=== PATIENT | male | born 1960 | race Caucasian/White ===

== ENCOUNTER 2022-06-06 09:21 | Inpatient (IN) | payer BC ==
[~2022-06-06] VITALS: Ht 175.3 cm; Wt 83.9 kg
[~2022-06-06 09:21] MED LIST: HYDR50TA4 PO; LISI40TA13 PO; TAMS-3 PO
--- NOTE | 2022-06-06 09:21 | NUR ---
Pt. admitted to , under care of Dr. Loomis List completed
--- NOTE | 2022-06-06 11:25 | NUR ---
Patient is resting comfortably in bed with eyes closed
--- NOTE | 2022-06-06 11:26 | NUR ---
1700 URINE OUTPUT NOTED FROM BAILEY LEMONS,WILL CONTINUE TO MONITOR FOR ANY S/S OF DISCONFORT VSS Addendum: 06/06/22 at 1127 by TATIANA 1700 URINE OUTPUT NOTED.MD CUEVAS
[2022-06-06 12:10] LABS: HEMATOCRIT 31.8 % (36.7-47.1); MEAN CORPUSCULAR HEMOGLOBIN 31.6 uug (23.8-33.4); MEAN CORPUSCULAR VOLUME 92.2 fL (73.0-96.2); PLATELET COUNT (AUTO) 201 K/uL (152-348)
[2022-06-06 12:10] LABS: *BILIRUBIN,URIN NEGATIVE (NEGATIVE); *BLOOD, URINE 3+ (NEGATIVE); *CLARITY,URINE CLEAR (CLEAR); *COLOR,URINE YELLOW (YELLOW); *KETONES,URINE NEGATIVE (NEGATIVE); *UROBILINOGEN,URINE 0.2 E.U./dl (NORMAL); LEUKOCYTE ESTERASE ,URINE NEGATIVE (NEGATIVE); NITRITE, URINE NEGATIVE (NEGATIVE); UGLUCOSE NEGATIVE (NEGATIVE)
[2022-06-06 12:15] LABS: *URINE UREA NITROGEN, RNDM 125 mg/dL (350-1000)
[2022-06-06 12:25] LABS: POTASSIUM 3.9 mmol/L (3.5-5.1)
[2022-06-06] MEDS ORDERED: MAGNESIUM SULFATE/D5W 100 ML IV SCH (12:30)
[2022-06-06] MEDS ORDERED: MAGNESIUM SULFATE/D5W 100 ML ONE (13:04)
[2022-06-06] MEDS: IV NS 1000 ML 1,000 ML IV PRN ×4 (13:26→23:53)
--- NOTE | 2022-06-06 13:46 | NUR ---
pT ALERT AND ORIENTED AD BEDSIDE.IV 0.9 NORMAL SALINE AT 120 MLS ORDERED,PT RECEIVED MAGNESIUM NO S/S OF REACTION NOTED.
[2022-06-06 13:52] LABS: BACTERIA,URINE FEW /HPF (NONE SEEN); SQUAMOUS EPITHELIAL CELL,UR FEW /HPF (NONE SEEN); WBC,URINE 0-3 /HPF (0-3)
[2022-06-06] MEDS ORDERED: HYDROCODONE/APAP 5-325MG TABLET PO PRN (14:00)
[2022-06-06] MEDS ORDERED: ONDANSETRON 4 MG/2 ML VIAL IV PRN (14:00)
--- NOTE | 2022-06-06 14:30 | NUR ---
received per paola awake alert and oriented x 4, with c/o of inaabilisty mto urinate, amaya cath inserted in ER- draining yellow urine, tele applied- SR no shortness of breath noted, on room air, oriented to bed controls, call button for nurse- verbalized understanding, initial assessment done by charge nurse, safety measures initiated
[2022-06-06 15:50] VITALS: BP 137/64
--- NOTE | 2022-06-06 17:36 | NUR ---
temyeyo recheck- 99.2, has ice pack on the back of neck, denies of pain a this time
--- NOTE | 2022-06-06 18:39 | NUR ---
resting in bed, no distress noted, mrsa swab sent to lab, all needs attended and met, call light within reach
--- NOTE | 2022-06-06 19:46 | NUR ---
Updated Dr Lai regarding patient current condition and fever during day shift. With order to start 1gm Vanco IV and Blood culture. Order noted and will carry out.
[2022-06-06] MEDS: ACETAMINOPHEN 325 MG TABLET PO PRN (20:12)
[2022-06-06 20:24] VITALS: BP 129/62
[2022-06-06] MEDS ORDERED: VANCOMYCIN IV 1,000 MG in IV DEXTROSE 5% 250 ML IV SCH (21:00)
[2022-06-06] MEDS ORDERED: VANCOMYCIN IV 200 ML ONE ×2 (21:13→23:25)
[2022-06-06] MEDS: VANCOMYCIN IV 2,000 MG in IV DEXTROSE 5% 500 ML IV ONE (21:52)
[2022-06-07 00:21] VITALS: BP 126/72
[2022-06-07 04:43] VITALS: BP 156/78
[2022-06-07] MEDS: ACETAMINOPHEN 325 MG TABLET PO PRN ×2 (05:15→15:36)
--- NOTE | 2022-06-07 05:42 | NUR ---
Tylenol 650mg PO and cooling measure provided for fever and effective. Current Temp 99.3 orally. Patient remains AAOx4. In no acute distress. Montgomery catheter intact and draining via gravity. No adverse effect noted from IV antibiotic. IV fluids continue to infuse to right wrist #22G. NSR on tele with HR of 71/min. Needs attended to and met. Safety measure maintained and call light within reached.
[2022-06-07 06:34] LABS: HEMATOCRIT 28.2 % (36.7-47.1); MEAN CORPUSCULAR HEMOGLOBIN 32.4 uug (23.8-33.4); MEAN CORPUSCULAR VOLUME 90.8 fL (73.0-96.2); PLATELET COUNT (AUTO) 186 K/uL (152-348)
[2022-06-07 06:51] LABS: CREATININE 0.9 mg/dL (0.6-1.3); PHOSPHOROUS 2.1 mg/dL (2.5-4.9)
[2022-06-07 08:13] LABS: MAGNESIUM 0.9 mg/dL (1.8-2.4)
[2022-06-07] MEDS: IV NS 1000 ML 1,000 ML IV PRN ×2 (09:32→21:10)
[2022-06-07] MEDS: POTASSIUM CHLORIDE 10 MEQ TAB.PRT.SR PO SCH ×2 (09:32→13:28)
[2022-06-07] MEDS: VANCOMYCIN IV 1,250 MG in IV DEXTROSE 5% 250 ML IV SCH ×2 (10:28→23:54)
[2022-06-07] MEDS ORDERED: ROSU40TA PO (10:38)
[2022-06-07] MEDS ORDERED: NEBI10TA2 PO (10:38)
[2022-06-07] MEDS ORDERED: MAGN250T37 PO (10:38)
[2022-06-07] MEDS ORDERED: TAMS-3 PO (10:45)
[2022-06-07] MEDS: MAGNESIUM SULFATE/D5W 100 ML IV SCH ×4 (11:28→14:31)
[2022-06-07 11:35] VITALS: BP 170/76
--- NOTE | 2022-06-07 12:00 | NUR ---
Patient is AAOx4. at bedside. In no acute distress, no pain. Montgomery catheter intact and draining via gravity. No adverse effect noted from IV antibiotic. IV fluids continue to infuse to right wrist #22G. NSR on tele with HR of 73/min. Needs attended to and met. Safety measure maintained and call light within reached.
[2022-06-07 13:30] LABS: IRON, SERUM 11 ug/dL (50-175)
[2022-06-07] MEDS: METOPROLOL TARTRATE 50 MG TABLET PO SCH ×2 (13:36→20:36)
[2022-06-07] MEDS ORDERED: NEUTRA PHOS PACKET PO ONE (14:00)
--- NOTE | 2022-06-07 14:15 | NUR ---
Ulises was DC'd per Dr Swann to check if patient can void on his own.
[2022-06-07 16:00] VITALS: BP 143/71
--- NOTE | 2022-06-07 18:31 | NUR ---
Patient said he felt an urge to urinate but could not. Dr Swann made aware. Did bladder scanner, it showed 770cc retention of urine. Dr Obrien is informed.
--- NOTE | 2022-06-07 19:30 | NUR ---
Received patient lying in bed. AAOx4. In no acute distress. Denies any pain or SOB. NSR on tele with HR of 81/min. IV site on right wrist intact and patent. IVF infusing. Montgomery catheter intact and draining via gravity. Needs assessed and attended to. Safety measure initiated and call light within reached.
[2022-06-07 20:00] VITALS: BP 137/68
[2022-06-07] MEDS: ATORVASTATIN 40 MG TABLET PO SCH (20:35)
[2022-06-08] VITALS: BP 149/74
[2022-06-08] MEDS: ACETAMINOPHEN 325 MG TABLET PO PRN ×3 (01:38→21:47)
--- NOTE | 2022-06-08 05:57 | NUR ---
No adverse reaction noted from IV antibiotic. Afebrile at this time. NSR on tele with HR of 75/min. V fluids infusing. Montgomery catheter intact and draining via gravity. Dressing on back intact. Dressing change to upper back/cervical area. Needs attended to and met. Safety measure maintained and call light within reached.
[2022-06-08 07:09] LABS: HEMATOCRIT 29.5 % (36.7-47.1); MEAN CORPUSCULAR HEMOGLOBIN 32.6 uug (23.8-33.4); MEAN CORPUSCULAR VOLUME 90.4 fL (73.0-96.2); PLATELET COUNT (AUTO) 252 K/uL (152-348)
[2022-06-08 07:38] LABS: POTASSIUM 3.5 mmol/L (3.5-5.1)
[2022-06-08 07:40] LABS: BILIRUBIN,DIRECT 0.2 mg/dL (0.0-0.2); TOTAL PROTEIN, SERUM 5.7 g/dL (6.4-8.2)
--- NOTE | 2022-06-08 08:00 | NUR ---
AWAKE ALERT AND ORIENTED X3 NO SS OF PAIN OR SOB SR ON MONITOR, AVALOS DRAINING CLEAR JOSY URINE. FOR F/U WITH UROLOGIST DUE TO RETANTIPON
[2022-06-08 08:48] LABS: MAGNESIUM 1.1 mg/dL (1.8-2.4)
[2022-06-08] MEDS: MAGNESIUM OXIDE 250 MG TABLET PO SCH (08:53)
[2022-06-08] MEDS: IV NS 1000 ML 1,000 ML IV PRN (08:54)
[2022-06-08] MEDS: METOPROLOL TARTRATE 50 MG TABLET PO SCH ×2 (08:54→20:53)
[2022-06-08] MEDS: MAGNESIUM SULFATE/D5W 100 ML IV SCH ×3 (09:51→11:36)
[2022-06-08] MEDS ORDERED: MAGNESIUM SULFATE/D5W 100 ML IV SCH (10:00)
--- NOTE | 2022-06-08 11:00 | NUR ---
SEEN BY DR Tara FRANCIS FOR FOLLOW-UP AWAITING UROLOGIST CONSULT
[2022-06-08 12:00] VITALS: BP 149/72
--- NOTE | 2022-06-08 12:50 | NUR ---
SEEN BY UROLOGIST DR KABA FOR CONSULT RECOMMEND TO LEAVE AVALOS CATH WHEN DISCHARGE AND F/U WITH OWN UROLOGIST.
[2022-06-08] MEDS: VANCOMYCIN IV 1,250 MG in IV DEXTROSE 5% 250 ML IV SCH (13:25)
[2022-06-08] MEDS: GLUCERNA SHAKE 237 ML CAN PO SCH (15:35)
[2022-06-08 16:00] VITALS: BP 150/70
--- NOTE | 2022-06-08 16:30 | NUR ---
TEMP 100.3 ORALLY TYLENOL GIVEN PRN. OBSERVED
[2022-06-08 20:14] VITALS: BP 143/72
[2022-06-08] MEDS: ATORVASTATIN 40 MG TABLET PO SCH ×4 (20:53→21:37)
[2022-06-08] MEDS: TAMSULOSIN HCL 0.4 MG CAP.SR.24H PO SCH ×2 (20:53→21:00)
[2022-06-08] MEDS ORDERED: IBUPROFEN 400 MG TABLET PO PRN ×2 (22:00)
[2022-06-09 00:10] VITALS: BP 146/85
[2022-06-09] MEDS: VANCOMYCIN IV 1,250 MG in IV DEXTROSE 5% 250 ML IV SCH ×3 (02:08→20:00)
[2022-06-09 04:24] VITALS: BP 149/76
[2022-06-09 06:58] LABS: HEMATOCRIT 29.9 % (36.7-47.1); MEAN CORPUSCULAR HEMOGLOBIN 32.7 uug (23.8-33.4); MEAN CORPUSCULAR VOLUME 89.9 fL (73.0-96.2); PLATELET COUNT (AUTO) 292 K/uL (152-348)
[2022-06-09 07:29] LABS: PHOSPHOROUS 3.1 mg/dL (2.5-4.9); POTASSIUM 3.8 mmol/L (3.5-5.1)
[2022-06-09 08:18] LABS: MAGNESIUM 1.2 mg/dL (1.8-2.4)
[2022-06-09] MEDS: GLUCERNA SHAKE 237 ML CAN PO SCH ×2 (09:01→16:23)
[2022-06-09] MEDS: METOPROLOL TARTRATE 50 MG TABLET PO SCH ×2 (09:02→20:23)
[2022-06-09] MEDS: MAGNESIUM OXIDE 250 MG TABLET PO SCH (09:02)
[2022-06-09] MEDS: MAGNESIUM SULFATE/D5W 100 ML IV SCH ×4 (09:43→13:35)
--- NOTE | 2022-06-09 10:00 | NUR ---
ANXIOUS TO BE DISCHARGED TODAY. DSGS TO NECK AND UPPER BACK CLEAN, DRY AND INTACT. SCANT AMOUNT OF OLD DRAINAGE NOTED ON NECK DSG. OT HERE TO ISMAEL. PATIENT.
[2022-06-09 12:00] VITALS: BP 156/71
[2022-06-09 16:00] VITALS: BP 153/77
[2022-06-09] MEDS: PIPERACILLIN SODIUM/TAZOBACTAM 4.5 G in IV DEXTROSE 5% 50 ML IV SCH (16:23)
[2022-06-09] MEDS: ATORVASTATIN 40 MG TABLET PO SCH (20:21)
[2022-06-09] MEDS: ACETAMINOPHEN 325 MG TABLET PO PRN (20:21)
[2022-06-09] MEDS: TAMSULOSIN HCL 0.4 MG CAP.SR.24H PO SCH (20:25)
[2022-06-09 20:50] VITALS: BP 160/87
[2022-06-10] MEDS: PIPERACILLIN SODIUM/TAZOBACTAM 4.5 G in IV DEXTROSE 5% 50 ML IV SCH ×3 (00:14→16:30)
[2022-06-10 04:30] VITALS: BP 147/81
[2022-06-10] MEDS: VANCOMYCIN IV 1,250 MG in IV DEXTROSE 5% 250 ML IV SCH ×3 (05:05→22:12)
[2022-06-10] MEDS: ACETAMINOPHEN 325 MG TABLET PO PRN ×4 (05:26→23:07)
[2022-06-10 07:27] LABS: POTASSIUM 3.3 mmol/L (3.5-5.1)
[2022-06-10 07:49] LABS: MAGNESIUM 1.2 mg/dL (1.8-2.4)
--- NOTE | 2022-06-10 08:00 | NUR ---
Pt alert and oriented x 4. Pt is in no acute distress. Denies any c/o pain. IV on right hand intact repositioned 2nd to leakage noted. Call light is within reach. Reinforce to patient No TWISTING due to his sx.
[2022-06-10] MEDS: METOPROLOL TARTRATE 50 MG TABLET PO SCH ×2 (09:22→21:15)
[2022-06-10] MEDS: MAGNESIUM OXIDE 250 MG TABLET PO SCH (09:22)
[2022-06-10] MEDS: GLUCERNA SHAKE 237 ML CAN PO SCH ×2 (09:24→16:30)
[2022-06-10] MEDS ORDERED: POTASSIUM CHLORIDE 20 MEQ TAB.PRT.SR PO ONE (09:45)
[2022-06-10] MEDS: MAGNESIUM SULFATE/D5W 100 ML IV SCH ×6 (10:34→16:29)
[2022-06-10 12:00] VITALS: BP 140/75
--- NOTE | 2022-06-10 12:33 | NUR ---
WOUND CARE CONSULT: RECEIVED CONSULT FOR SURGICAL DRESSING DRAINAGE. PT HAS TWO DRESSINGS, SURGICAL AND THORACIC. BOTH DRESSINGS ARE DRY AND INTACT. PT WILL FOLLOW UP WITH HIS SURGEON. WILL SEE PRN.
[2022-06-10 16:00] VITALS: BP 144/69
--- NOTE | 2022-06-10 17:44 | NUR ---
Latest temp 98.5. Pt still request tylenol now for pain on his back with pain level of 5/10 described as aching. Pt afebrile.
--- NOTE | 2022-06-10 20:30 | NUR ---
Confirmed with RISA tinsley for pt transfer to picked up at 2300. Pt to be transferred to [facility] rm [id number]. [facility] aware of time frame.
[2022-06-10 20:40] VITALS: BP 132/74
[2022-06-10 21:15] VITALS: BP 132/74
[2022-06-10] MEDS: TAMSULOSIN HCL 0.4 MG CAP.SR.24H PO SCH (21:15)
[2022-06-10] MEDS: ATORVASTATIN 40 MG TABLET PO SCH (21:16)
--- NOTE | 2022-06-10 22:10 | NUR ---
Report given to Ruthy STOUT at [facility].
--- NOTE | 2022-06-10 23:18 | NUR ---
Vital signs stable at discharge. No fever noted. No complaints as of this time. All belongings checked and documented. IV and amaya cath left in place. ID band removed. Discharge paperwork and report given to RISA tinsley.
[2022-06-13 07:09] LABS: NEUTROPHILS % (MANUAL) 0 % (42-75)
== END 2022-06-10 23:15 | disposition short-term general hospital (02) | DRG 726 ==
LOC: ER 09:27 → TELE3 14:03
DX: N40.1 Benign prostatic hyperplasia with lower urinary tract symptoms (principal); L03.116 Cellulitis of left lower limb; R65.10 Systemic inflammatory response syndrome (SIRS) of non-infectious origin without acute organ dysfunction; J98.11 Atelectasis; R33.8 Other retention of urine; E87.6 Hypokalemia; E83.42 Hypomagnesemia; E83.51 Hypocalcemia; I10 Essential (primary) hypertension; D50.9 Iron deficiency anemia, unspecified; D72.829 Elevated white blood cell count, unspecified; K59.00 Constipation, unspecified; Z98.890 Other specified postprocedural states
CPT/HCPCS: 36415; 51702; 70030-TC; 71045; 76604; 83550; 83735; 83935; 84100; 84153; 84300; 84520; 85025; 87040; 97161; 97535-GO-CO; A4663; G0378; J2543; J3370; J3475; J7040; J7050; J7060